=== PATIENT | female | born 2000 | race Caucasian/White ===

== ENCOUNTER → 2024-07-27 | Outpatient (CLI) | payer OTHER ==
[~2024-07-27] MED LIST: Iohexol 300 - 100 ML VIAL IV ONE; NS 100 ML IV SCH
== END ==
LOC: COL.RAD 13:51
DX: G43.E09 Chronic migraine with aura, not intractable, without status migrainosus (principal); R40.4 Transient alteration of awareness; R20.0 Anesthesia of skin; R20.2 Paresthesia of skin; R42 Dizziness and giddiness; Z84.89 Family history of other specified conditions
CPT/HCPCS: Q9967